=== PATIENT | male | born 1965 | race Caucasian/White ===

== ENCOUNTER 2016-11-30 21:16 | Outpatient (CLI) | payer OTHER | END 2016-11-30 21:17 | disposition critical access hospital (66) | LOC: EMS 21:16 | PROVIDERS: ATTEND Surgery | DX: R07.9 Chest pain, unspecified (principal); R10.10 Upper abdominal pain, unspecified; R42 Dizziness and giddiness; R11.0 Nausea | CPT/HCPCS: A0425; A0427 ==

== ENCOUNTER 2016-11-30 21:51 | Emergency (ER) | payer OTHER ==
[2016-11-30 22:10] LABS: BASOPHILS % (AUTO) 0.5 %; EOSINOPHILS # (AUTO) 0.1 10^3/uL (0.0-0.7); EOSINOPHILS % (AUTO) 1.8 %; HCT - HEMATOCRIT 39.3 % (42.0-52.0); HGB - HEMOGLOBIN 13.7 g/dL (14.0-18.0); LYMPHOCYTES # (AUTO) 1.6 10^3/uL (1.5-3.5); LYMPHOCYTES % (AUTO) 19.6 %; MEAN CORPUSCULAR HEMOGLOBIN 30.9 pg (27.0-31.0); MEAN CORPUSCULAR HGB CONC 34.8 g/dL (32.0-36.0); MEAN CORPUSCULAR VOLUME 88.8 fL (80.0-94.0); MEAN PLATELET VOLUME 7.8 fL (7.4-11.4); MONOCYTES # (AUTO) 0.6 10^3/uL (0.0-1.0); MONOCYTES % (AUTO) 6.9 %; NEUTROPHILS # (AUTO) 5.8 10^3/uL (1.5-6.6); NEUTROPHILS % (AUTO) 71.2 %; RED BLOOD COUNT 4.43 10^6/uL (4.70-6.10); RED CELL DISTRIBUTION WIDTH 12.7 % (12.0-15.0); UNCORRECTED WHITE BLOOD COUNT 8.1 x10^3/uL; WHITE BLOOD COUNT 8.1 x10^3/uL (4.8-10.8)
[2016-11-30 22:13] LABS: INR 1.1 (0.8-1.2); PT - PROTHROMBIN TIME 11.9 secs (9.9-12.6)
[2016-11-30 22:19] LABS: ALBUMIN/GLOBULIN RATIO 1.5 (1.0-2.2); BILIRUBIN,TOTAL 0.6 mg/dL (0.2-1.0); CALCIUM 8.7 mg/dL (8.5-10.3); CREATININE 0.9 mg/dL (0.6-1.2); POTASSIUM 3.2 mmol/L (3.5-5.0)
[2016-11-30 22:21] LABS: PARTIAL THROMBOPLASTIN TIME 28.7 secs (24.9-33.3)
[2016-11-30] MEDS ORDERED: POTASSIUM CHLORIDE 20 MEQ TABLET PO STA (22:29)
--- NOTE | 2016-11-30 22:30 | XRAY Preliminary Report ---
Exam: XR Chest 2 View PA/LAT IMPRESSION: Normal 2-view chest radiography. [facility] SITE ID: [id number]
--- NOTE | 2016-11-30 22:32 | XRAY Report ---
EXAM: CHEST RADIOGRAPHY EXAM DATE: 11/30/2016 10:15 PM. CLINICAL HISTORY: Chest pain. COMPARISON: 06/13/2009. TECHNIQUE: 2 views. FINDINGS: Lungs/Pleura: No focal opacities evident. No pleural effusion. No pneumothorax. Normal volumes. Mediastinum: Heart and mediastinal contours are unremarkable. Other: No bony abnormality noted. IMPRESSION: Normal 2-view chest radiography. [facility] Referring Provider Line: [phone] SITE ID: [id number]
[2016-11-30] MEDS ORDERED: POTASSIUM CHLORIDE 20 MEQ TABLET PO ONE (22:33)
[2016-12-01 00:42] VITALS: BP 114/74
--- NOTE | 2016-12-01 00:43 | ED Physician Documentation ---
PD HPI CHEST PAIN - Stated complaint Stated Complaint: EPIGASTRIC PAIN - Chief complaint Chief Complaint: Cardiac - History obtained from History obtained from: Patient, Family, EMS - History of Present Illness Timing - onset: How many hours ago (2) Timing - onset during: Light activity Timing - details: Gradual onset, Now resolved Quality: Pressure Location: Substernal, Epigastric Radiation: Abdominal Improved by: Rest, Other (burping) Worsened by: Eating Associated symptoms: Nausea, Feeling faint / dizzy. No: Shortness of air, Diaphoresis, Vomiting Similar symptoms before: Has not had sx before Recently seen: Not recently seen - Additional information Additional information: Patient is a 51 year old male wiht no significant past medical history who is presenting to the emergency department for epigastric pain. Patient states that this afternoon he had to get a lot of stuff done and was feeling a bit tired. Patient drank a cup of coffee and two doctor peppers. Patient states that he then watered and weeded his garden and then washed the car. Patient felt like his heart was racing and felt a bit dizzy so he called ems. ems treated the patient with aspirin and nitro enroute. patient stated that he burped a few times in the car and felt a bit better upon initial evaluation. Review of Systems Constitutional: denies: Fever, Chills Eyes: denies: Loss of vision, Decreased vision Ears: denies: Ear pain, Drainage/discharge Nose: denies: Rhinorrhea / runny nose, Congestion, Sinus pressure / pain Throat: denies: Dental pain / toothache, Sore throat Cardiac: reports: Chest pain / pressure, Palpitations. denies: Pedal edema, Calf pain Respiratory: denies: Dyspnea, Cough, Wheezing GI: denies: Abdominal Pain, Nausea, Vomiting Musculoskeletal: denies: Neck pain, Back pain, Extremity pain Neurologic: reports: Generalized weakness. denies: Focal weakness, Numbness, Syncope, Seizure, Altered mental status, Headache, Head injury, LOC Psychiatric: denies: Depressed Immunocompromised: denies: Immunocompromised PD PAST MEDICAL HISTORY - Past Medical History Respiratory: Asthma GI: Crohn's disease - Past Surgical History Past Surgical History: No - Present Medications Home Medications: Ambulatory Orders Medication Instructions Recorded Confirmed HYDROcod/ACETAM 5/325 [Vicodin 1 - 2 ea PO Q6H PRN #30 tablet 05/16/14 11/30/16 5/325] Mesalamine [Asacol Hd] 2 tab DAILY 05/16/14 11/30/16 - Allergies Allergies/Adverse Reactions: Allergies Allergy/AdvReac Type Severity Reaction Status Date / Time No Known Drug Allergies Allergy Verified 11/30/16 22:07 - Social History Does the pt smoke?: No Smoking Status: Never smoker Does the pt drink ETOH?: No Does the pt have substance abuse?: No - Immunizations Immunizations are current?: Yes - POLST Patient has POLST: No PD ED PE NORMAL - Vitals Vital signs reviewed: Yes - General General: Alert and oriented X 3, No acute distress, Well developed/nourished - HEENT HEENT: Atraumatic, PERRL, Pharynx benign - Neck Neck: Supple, no meningeal sign, No JVD - Cardiac Cardiac: RRR, No murmur - Respiratory Respiratory: No respiratory distress, Clear bilaterally - Abdomen Abdomen: Soft, Non tender, Non distended - Derm Derm: Normal color, Warm and dry, No rash - Extremities Extremities: No deformity, No edema, No calf tenderness / cord - Neuro Neuro: Alert and oriented X 3, No motor deficit, No sensory deficit, Normal speech - Psych Psych: Normal mood, Normal affect Results - Vitals Vitals: Vital Signs - 24 hr 11/30/16 11/30/16 12/01/16 22:05 23:51 00:42 Temperature 36.8 C Heart Rate 95 55 L 46 L Respiratory 18 18 18 Rate Blood Pressure 148/87 H 113/70 114/74 O2 Saturation 98 96 93 Oxygen O2 Source Room air - EKG (time done) 2200 Rate: Rate (enter#) (79) Rhythm: NSR [place]: Normal Intervals: Normal MO Ischemia: ST depression Compare to prior EKG: Old EKG unavailable - Labs Labs: Laboratory Tests 11/30/16 11/30/16 11/30/16 21:00 21:00 21:00 WBC 8.1 RBC 4.43 L Hgb 13.7 L Hct 39.3 L MCV 88.8 MCH 30.9 MCHC 34.8 RDW 12.7 Plt Count 186 MPV 7.8 Neut # 5.8 Lymph # 1.6 [place] # 0.6 Eos # 0.1 Baso # 0.0 Absolute Nucleated RBC 0.00 Nucleated RBCs 0.0 PT 11.9 INR 1.1 APTT 28.7 Sodium 136 Potassium 3.2 L Chloride 101 Carbon Dioxide 26 Anion Gap 9.0 BUN 15 Creatinine 0.9 Estimated GFR (MDRD) 90 Glucose 200 H Calcium 8.7 Total Bilirubin 0.6 AST 24 ALT 31 Alkaline Phosphatase 50 Troponin I B-Natriuretic Peptide Total Protein 7.0 Albumin 4.2 Globulin 2.8 Albumin/Globulin Ratio 1.5 Lipase 21 L TSH 11/30/16 11/30/16 11/30/16 21:00 21:00 21:00 WBC RBC Hgb Hct MCV MCH MCHC RDW Plt Count MPV Neut # Lymph # [place] # Eos # Baso # Absolute Nucleated RBC Nucleated RBCs PT INR APTT Sodium Potassium Chloride Carbon Dioxide Anion Gap BUN Creatinine Estimated GFR (MDRD) Glucose Calcium Total Bilirubin AST ALT Alkaline Phosphatase Troponin I < 0.04 B-Natriuretic Peptide 20 Total Protein Albumin Globulin Albumin/Globulin Ratio Lipase TSH 2.59 12/01/16 00:10 WBC RBC Hgb Hct MCV MCH MCHC RDW Plt Count MPV Neut # Lymph # [place] # Eos # Baso # Absolute Nucleated RBC Nucleated RBCs PT INR APTT Sodium Potassium Chloride Carbon Dioxide Anion Gap BUN Creatinine Estimated GFR (MDRD) Glucose Calcium Total Bilirubin AST ALT Alkaline Phosphatase Troponin I < 0.04 B-Natriuretic Peptide Total Protein Albumin Globulin Albumin/Globulin Ratio Lipase TSH - Rads (name of study) chest x-ray Radiology: Final report received (no acute abnormality) PD MEDICAL DECISION MAKING - ED course Complexity details: reviewed old records, reviewed results, re-evaluated patient , considered differential, d/w patient, d/w family ED course: Patient was seen and examined at bedside. Patient was well appearing and in no acute distress. Patient's vital signs were within normal limits. ekg was performed and showed only minimal st depressions. chest x-ray and original labs were within normal limits. Repeat troponin remained negative. Patient's HEART score was 2 for ekg and family history. Patient was perc negative. patient was suitable candidate for outpatient therapy. Patient was stable for discharge with outpatient follow up. Departure - Departure Disposition: Home, Self Care Clinical Impression: Atypical chest pain Condition: Good Instructions: ED Chest Pain NonCardiac Follow-Up: Melissa Parikh MD [Primary Care Provider] - Within 1 week Comments: Your diagnostics today were within normal limits indicating that it is less likely your heart in nature. that being said, you should still follow up with your pmd for an echocardiogram and a stress test. You may return to the emergency department at any time for chest pain, shortness of breath, fevers, chills, new worsening or uncontrollable symptoms. Discharge Date/Time: 12/01/16 00:53
== END 2016-12-01 00:53 | disposition home or self-care (01) ==
LOC: EDUNIT# → ED 21:51
DX: R07.89 Other chest pain (principal); R10.13 Epigastric pain; K50.90 Crohn's disease, unspecified, without complications
CPT/HCPCS: 36415; 71020; 80053; 83690; 83880; 84443; 84484; 85025; 85610; 85730; 93005; 93010; 99284; A9270

== ENCOUNTER 2019-05-29 11:49 | Emergency (ER) | payer OTHER ==
--- NOTE | 2019-05-29 13:24 | ED Physician Documentation ---
PD HPI HEAD INJURY - Stated complaint Stated Complaint: HEAD INJURY - Chief complaint Chief Complaint: Trauma Hd/Nk - History obtained from History obtained from: Patient - History of Present Illness Mechanism of head injury: Blow (he had a metal level fall about 6 feet and strike him on top of head. Dazed momentarily and then he was startled by it and concerned about other things falling, so abruptly tried to get out from under the area and twisted his ankle while doing that. he has had pain with walking in ankle, and had has some feeling of headache where struck and some lightheaded at times. No confusion, altered mentation, visual changes, nausea nor vomiting.) Timing - onset: Yesterday Location of injury: Top Quality of pain: Aching Associated symptoms: AMS (some lightheaded at times today.), Nausea / vomiting (mild nausea at times today). No: LOC, Neck pain, Paresthesias Contributing factors: No: Anticoagulated Similar symptoms before: Has not had sx before Review of Systems Eyes: denies: Loss of vision, Decreased vision, Photophobia GI: reports: Nausea (mild at times). denies: Vomiting, Diarrhea Skin: denies: Abrasion (s), Laceration (s) Musculoskeletal: denies: Neck pain Neurologic: denies: Focal weakness, Numbness PD PAST MEDICAL HISTORY - Past Medical History Past Medical History: Yes Respiratory: Asthma GI: Crohn's disease - Past Surgical History Past Surgical History: Yes General: Colonoscopy - Present Medications Home Medications: Ambulatory Orders Medication Instructions Recorded Confirmed HYDROcod/ACETAM 5/325 [Vicodin 1 - 2 ea PO Q6H PRN #30 tablet 05/16/14 11/30/16 5/325] Mesalamine [Asacol Hd] 2 tab DAILY 05/16/14 11/30/16 - Allergies Allergies/Adverse Reactions: Allergies Allergy/AdvReac Type Severity Reaction Status Date / Time latex Allergy Rash Verified 05/29/19 12:35 - Social History Does the pt smoke?: No Smoking Status: Never smoker Does the pt drink ETOH?: No Does the pt have substance abuse?: No - Immunizations Immunizations are current?: Yes - POLST Patient has POLST: No PD ED PE NORMAL - Vitals Vital signs reviewed: Yes - General General: Alert and oriented X 3, No acute distress, Well developed/nourished - HEENT HEENT: PERRL, EOMI (no diplopia. Fundi normal both eyes. ), Other (some focal scalp tenderness at top of head without laceration. Locally tender only. Neck not tender. ) - Neck Neck: Supple, no meningeal sign, No bony TTP, No adenopathy - Cardiac Cardiac: RRR, No murmur - Respiratory Respiratory: Clear bilaterally - Derm Derm: Normal color, Warm and dry - Extremities Extremities: Other (left ankle with some swelling and tenderness anterolateral aspect. Pain with inversion but no noted laxity. Medially not tender. ) - Neuro Neuro: Alert and oriented X 3, continuous improvement coordinator 2-12 intact, No motor deficit, No sensory deficit, Normal speech Results - Vitals Vitals: Vital Signs - 24 hr 05/29/19 05/29/19 12:29 13:50 Temperature 36.8 C Heart Rate 56 L 50 L Respiratory 16 14 Rate Blood Pressure 139/104 H 127/83 H O2 Saturation 98 50 L Oxygen O2 Source Room air - Rads (name of study) left ankle Radiology: Prelim report reviewed (no fractures), See rad report PD MEDICAL DECISION MAKING - ED course Complexity details: considered differential (seems minimal head injury symptoms, and had injury a day ago, so not anticipate quick worsening. Talked with him about imaging versus not and he is in favor of not getting CT. He has ankle brace at home from prior injury, so did not need one here. ), d/w patient, d/w family Departure - Departure Disposition: 01 Home, Self Care Clinical Impression: Left ankle sprain Qualifiers: Encounter type: initial encounter Involved ligament of ankle: anterior talofibular ligament Qualified Code(s): S93.492A - Sprain of other ligament of left ankle, initial encounter Mild concussion Qualifiers: Encounter type: initial encounter Loss of consciousness presence/duration: without LOC Qualified Code(s): S06.0X0A - Concussion without loss of consciousness, initial encounter Condition: Stable Record reviewed to determine appropriate education?: Yes Instructions: ED Concussion, ED Sprain Ankle Follow-Up: CINDY SAGASTUME MD [Primary Care Provider] - Comments: Use an ankle brace that you have at home when up and around for the next several days to week for the ankle sprain. Tylenol or ibuprofen if needed for the headaches. It sounds like mild concussive symptoms. As we discussed to a can withhold any advanced imaging like CT scan with a very low probability of finding abnormalities. If you have continued symptoms more than a few more days or you have increasing symptoms then return for recheck. This approach is in concurrence with several national guidelines on mild head injury. Discharge Date/Time: 05/29/19 13:51
--- NOTE | 2019-05-29 13:25 | XRAY Report ---
Reason: bruising and swollen Procedure Date: 05/29/2019 Accession Number: [id number] / [id number] Procedure: XR - Ankle 3 View LT CPT Code: Final Report FULL RESULT: EXAM: LEFT ANKLE RADIOGRAPHY EXAM DATE: 05/29/2019 01:02 PM. CLINICAL HISTORY: Bruising and swollen. COMPARISON: None. TECHNIQUE: 3 views. FINDINGS: Bones: Normal. No fractures or bone lesions. Joints: Normal. No effusion. No subluxations. The ankle mortise is normally aligned. Soft Tissues: Normal. No soft tissue swelling. IMPRESSION: Normal ankle radiography. [facility]
[2019-05-29 13:52] VITALS: BP 127/83
== END 2019-05-29 13:51 | disposition home or self-care (01) ==
LOC: ED 11:49
DX: S06.0X0A Concussion without loss of consciousness, initial encounter (principal); W20.8XXA Other cause of strike by thrown, projected or falling object, initial encounter; S93.492A Sprain of other ligament of left ankle, initial encounter; X50.1XXA Overexertion from prolonged static or awkward postures, initial encounter
CPT/HCPCS: 99282; 99283

== ENCOUNTER 2020-02-09 18:18 | Outpatient (CLI) | payer OTHER ==
[2020-02-09 20:24] LABS: HGB - HEMOGLOBIN 14.6 g/dL (14.0-18.0); MEAN CORPUSCULAR VOLUME 91.3 fL (80.0-94.0); MEAN PLATELET VOLUME 10.6 fL (7.4-11.4); RED BLOOD COUNT 4.71 10^6/uL (4.70-6.10); RED CELL DISTRIBUTION WIDTH 11.9 % (12.0-15.0); WHITE BLOOD COUNT 8.2 x10^3/uL (4.8-10.8)
[2020-02-09 20:37] LABS: ALBUMIN 4.5 g/dL (3.2-5.5); ALBUMIN/GLOBULIN RATIO 1.7 (1.0-2.2); BILIRUBIN,TOTAL 0.7 mg/dL (0.2-1.0); CALCIUM 9.2 mg/dL (8.5-10.3); CREATININE 1.1 mg/dL (0.6-1.2); TOTAL PROTEIN 7.2 g/dL (6.7-8.2)
== END 2020-02-09 18:19 | disposition home or self-care (01) ==
LOC: LAB.S 18:18
PROVIDERS: ATTEND Internal Medicine Gastroenterology
DX: K50.119 Crohn's disease of large intestine with unspecified complications (principal)
CPT/HCPCS: 36415; 80053; 85027

== ENCOUNTER 2023-09-22 02:52 | Emergency (ER) | payer OTHER ==
--- NOTE | 2023-09-22 03:22 | ED Physician Documentation ---
PD HPI HEENT - Stated complaint Stated Complaint: L EAR PX - Chief complaint Chief Complaint: Heent - History obtained from History obtained from: Patient - Additional information Additional information: HPI from patient. Patient c/o left ear pain with decreased hearing since earlier tonight. There was no inciting event including no injury. He has mild/moderate, constant left ear pain and left-sided temporal RUBIO. No numbness, weakness, visual changes. Has had similar decreased hearing in the past (many years ago) attributed to cerumen impaction. Patient used debrox drops at home tonight but this suddenly worsened the ear pain. He did not have any cerumen output with the drops Review of Systems Ears: reports: Loss of hearing, Ear pain. denies: Drainage/discharge, Tinnitus/ringing PD PAST MEDICAL HISTORY - Past Medical History Past Medical History: Yes Respiratory: Asthma GI: Crohn's disease - Past Surgical History Past Surgical History: Yes General: Colonoscopy - Present Medications Home Medications: Ambulatory Orders Medication Instructions Recorded Confirmed Amox/Clav 875/125 [Augmentin 1 tablet PO Q12H 7 Days #14 tablet 09/22/23 875/125 Tab] Mesalamine [Lialda] 2 tab PO BID 09/22/23 09/22/23 Omeprazole Magnesium [Prilosec] 10 mg PO DAILY 09/22/23 09/22/23 oxyCODONE [Roxicodone] 5 - 10 mg PO Q4-6H PRN #14 tablet 09/22/23 - Allergies Allergies/Adverse Reactions: Allergies Allergy/AdvReac Type Severity Reaction Status Date / Time latex Allergy Rash Verified 09/22/23 03:15 - Social History Does the pt smoke?: No Smoking Status: Never smoker Does the pt drink ETOH?: No Does the pt have substance abuse?: No - Immunizations Immunizations are current?: Yes - POLST Patient has POLST: No PD ED PE NORMAL - Vitals Vital signs reviewed: Yes - General General: Alert and oriented X 3, No acute distress, Well developed/nourished PD ED PE EXPANDED - HEENT HEENT: Other (left EAC large amount cerumen which completely obscures view of TM. no discharge) Results - Vitals Vitals: Oxygen O2 Source Room air PD Medical Decision Making - ED course Complexity details: considered differential, d/w patient ED course: multiple attempts to disimpact the cerumen from the left EAC were unsuccessful. This included both with plastic curette under direct otoscopic visualization as well as with irrigation. A small amount was removed but large cerumen impaction remains. Efforts were eventually abandoned due to exacerbation of significant pain/discomfort with these attempts (which persisted after 10mg PO oxycodone given to patient in ED). I was able to visualize the cranial-most edge of the left TM which appears erythematous as does the small portion of the EAC visualized with removal of the small amount of cerumen. Given cortisporin otic drops and augmentin (PO dose and rx) to cover possible EOM and OM; these measures were taken considering the erythema on exam, but also considering the significant pain he is having (which would not be attributable to cerumen impaction alone). Return precautions reviewed, f/u with PMD advised. Departure - Departure Disposition: 01 Home, Self Care Clinical Impression: Cerumen impaction Qualifiers: Laterality: left Qualified Code(s): H61.22 - Impacted cerumen, left ear Otitis externa Qualifiers: Otitis externa type: unspecified type Chronicity: acute Laterality: left Qualified Code(s): H60.502 - Unspecified acute noninfective otitis externa, left ear Condition: Good Instructions: ED Wax Ear Home Removal, ED Otitis Externa, ED Earwax Removal Prescriptions: Amox/Clav 875/125 [Augmentin 875/125 Tab] 1 tablet PO Q12H 7 Days #14 tablet oxyCODONE [Roxicodone] 5 - 10 mg PO Q4-6H PRN #14 tablet PRN Reason: Moderate Pain (Level 4-6) Comments: I was only able to remove a small amount of the earwax impacted in your left ear canal due to the amount of discomfort associated with these attempts. At this point, I am prescribing oral antibiotics to cover possible left middle ear infection, and you were also given antibiotic drops which are used to treat outer ear (ear canal) infections. The diagnosis of either of these infections requires better visualization of the ear canal as well as the ear drum; based on the amount of pain you are having (which would not be caused by ear wax alone), the antibiotics are for suspected (but not confirmed) infection. Hopefully, the combination of the oral antibiotics and the antibiotic drops will lead to improvement of symptoms within 1 to 2 days, and subsequent resolution. If your symptoms persist beyond 4 to 5 days into the antibiotic treatment, seek follow- up with your primary care provider. Certainly, if your symptoms worsen, or if you develop new/concerning signs/symptoms (such as fever or pain that is not controlled with the prescribed pain medication), you can return to the emergency department for reevaluation. Use the antibiotic drops as follows: 4 drops into the left ear 3 times per day for one week. I have electronically submitted prescriptions for a 1-week course of the oral antibiotic as well as oxycodone (narcotic/opiate pain medication) to the [facility] pharmacy in [place]. I am prescribing a short course of narcotic pain medication for you. These are potentially dangerous and addictive medications that should be used carefully. These medications may constipate you. Take an [id number] stool softener (docusate) twice daily with plenty of water while taking these medications. If you go 24 hours without a bowel movement, take [id number] miralax, per package instructions. Do not drink or drive while taking these medications. If you received narcotic or sedating medications while in the emergency department, do not drive for 24 hours. Store this medication in a safe, secure place and out of reach of children. It is a violation of federal law to give or sell this medication to another person or to use in a manner other than prescribed. The ED will not refill narcotic prescriptions, including prescriptions lost or stolen. To dispose of unwanted medications: 1. [facility] at [address] in [place] has a medication drop box. They accept prescription medications (in pill form) Sunday through Sunday 9:00 a.m. to 5:00 p.m. 2. The [facility] [employer] accepts prescription medications (in pill form only) for disposal year round. Call for more information. 3. Contact the [facility] for the next [facility] sponsored prescription drug collection event. , [phone], or [phone]; Forms: PCP List Discharge Date/Time: 09/22/23 05:50
[2023-09-22] MEDS: oxyCODONE 5 MG TABLET PO STA (04:01)
[2023-09-22] MEDS: NEOMYCIN/POLYMYX/HC OTIC DROPS LEFTEAR STA (05:26)
[2023-09-22] MEDS: AMOX/CLAV 875 MG/125 MG TABLET PO STA (05:26)
[2023-09-22 05:44] VITALS: BP 141/99; O2SAT 97
== END 2023-09-22 05:50 | disposition home or self-care (01) ==
LOC: ED 02:52
DX: H61.22 Impacted cerumen, left ear (principal); H60.502 Unspecified acute noninfective otitis externa, left ear
CPT/HCPCS: 69210; 99282; 99283; A9270; 69209